=== PATIENT | female | born 1985 | race African-American/Black ===

== ENCOUNTER 2016-10-21 06:05 | Day surgery (SDC) | payer OTHER ==
--- NOTE | ~2016-10-21 | OP ---
Record Of Operation [facility] [address] [place]. [address] NAME: LINDA GRIFFITHS : 81 [place] [facility] [place] [id number] AGE: 31 ADM/REG DATE : 10/21/16 MR#: [id number] REPORT SERV DATE: 10/21/16 DICTATED BY: JEN GALICIA DATE: 10/21/16 REPORT STATUS : Draft TRANSCRIBED BY: MODL DATE: 10/21/16 DATE OF PROCEDURE: 10/21/2016 PREOPERATIVE DIAGNOSIS: Right glomus tympanicum. POSTOPERATIVE DIAGNOSIS: Right glomus tympanicum. PROCEDURE: Right tympanoplasty with excision of glomus tympanicum. SURGEON: Dr. Jen Galicia. ANESTHESIA: General. COMPLICATIONS: None. COUNTS: All counts correct following the procedure. ESTIMATED BLOOD LOSS: 5 mL. PREOPERATIVE INFORMED CONSENT: We discussed the risks and benefits of the surgery including but limited to bleeding, infection, possible recurrence of the tumor, possible postoperative taste distortion, possible need for repair of the tympanic membrane, possible hearing loss including total deafness, and possible facial nerve injury. She understands the risks and benefits of surgery and consent is on the chart. PROCEDURE IN DETAIL: The patient was brought to the operative suite, placed on the operative table in the supine position. General endotracheal anesthesia was initiated without incident. The right ear was addressed under the microscope and was cleaned, prepped, and draped in the usual sterile fashion. The ear canal in the postauricular region and tragus were injected with approximately 4 mL of 1% lidocaine and 1:100,000 epinephrine for hemostasis. Then a standard tympanomeatal flap was raised from the 6 o'clock to 12 o'clock position using a Mechoopda knife and a lancet knife. The inferior anulus was lifted up and the middle ear space was entered using a Rand needle. The inferior anulus was then lifted up using a Gimmick elevator superiorly. The Rand needle was used to lift up the anulus up to the chorda tympani nerve, where this was followed anteriorly to the short process of the malleus and using a 45-degree sharp pick, the long process and the short process of the malleus was skeletonized down to the umbo where the tympanic membrane was carefully released and once adequate exposure was obtained, there was noted to be a glomus tumor sitting on the promontory just anterior to the umbo of the malleus. Using a 45-degree sharp pick, the tumor was carefully dissected off the promontory of the middle ear space. The tumor was then removed on bloc using cup forceps and sent in formalin for permanent pathology. Bleeding was controlled by placing a cotton ball with 1:41611 adrenaline in middle ear space. The tympanic membrane and tympanomeatal flap was laid back down in its anatomic position and the ear canal was filled with Gelfoam moistened with saline out to the lateral aspect of the ear canal, followed by bacitracin ointment and a cotton ball. The patient was awakened from anesthesia and taken to the recovery in stable condition. Record Of Operation [address] [place]. [address] NAME: LINDA GRIFFITHS : 81 [place] [facility] [place] [id number] AGE: 31 ADM/REG DATE : 10/21/16 MR#: [id number] REPORT SERV DATE: 10/21/16 DICTATED BY: JEN GALICIA DATE: 10/21/16 REPORT STATUS : Draft TRANSCRIBED BY: SELINA DATE: 10/21/16 FAN/SELINA Jen Galicia M.D. / [id number] CC: Brittany Paniagua M.D.
[~2016-10-21 06:05] MED LIST: AIRBORNE; AUG875 PO; IBU800 PO; [UNRECOGNIZED DRUG - OTHER]
== END 2016-10-21 23:59 | disposition home or self-care (01) ==
LOC: MSC 06:05
PROVIDERS: Otolaryngology
PROC: 09Q77ZZ Repair Right Tympanic Membrane, Via Natural or Artificial Opening (ICD-10-PCS; principal; 2016-10-21 07:15)
DX: D18.09 Hemangioma of other sites (principal); Z79.2 Long term (current) use of antibiotics; Z79.899 Other long term (current) drug therapy
CPT/HCPCS: 84703; 88305; 88313; 88341; 88342; A9270-GY; J0690; J2250; J2405; J2710; J3010